=== PATIENT | male | born 1980 | race Caucasian/White ===

== ENCOUNTER → 2023-07-07 | Outpatient (CLI) | payer OTHER | LOC: MHCPAIN 14:49 | DX: M53.3 Sacrococcygeal disorders, not elsewhere classified (principal); M54.50 Low back pain, unspecified; M47.816 Spondylosis without myelopathy or radiculopathy, lumbar region; G96.191 Perineural cyst | CPT/HCPCS: G0463 ==

== ENCOUNTER → 2023-07-26 | Outpatient (CLI) | payer OTHER | LOC: MHCPAIN 10:25 | DX: M47.816 Spondylosis without myelopathy or radiculopathy, lumbar region (principal); M48.061 Spinal stenosis, lumbar region without neurogenic claudication; M54.17 Radiculopathy, lumbosacral region | CPT/HCPCS: G0463 ==

== ENCOUNTER → 2023-08-12 | Outpatient (CLI) | payer OTHER ==
[~2023-08-12] MED LIST: Iohexol 300 - 10 ML VIAL ONE; Lidocaine PF 2% (20 MG/ML) 2 ML VIAL ONE
== END ==
LOC: MHCPAIN 13:42
DX: M54.17 Radiculopathy, lumbosacral region (principal); G96.191 Perineural cyst
CPT/HCPCS: J1100; Q9967

== ENCOUNTER → 2023-09-14 | Outpatient (CLI) | payer OTHER | LOC: MHCPAIN 08:28 | DX: M47.816 Spondylosis without myelopathy or radiculopathy, lumbar region (principal); M54.50 Low back pain, unspecified | CPT/HCPCS: G0463 ==